=== PATIENT | male | born 1975 | race Caucasian/White ===

== ENCOUNTER 2017-05-17 02:31 | Emergency (ER) | payer MEDICAID ==
[2017-05-17 03:25] VITALS: BP 116/74
== END 2017-05-17 03:25 | disposition home or self-care (01) ==
LOC: ED 02:31
DX: H57.12 Ocular pain, left eye (principal); I10 Essential (primary) hypertension; E11.9 Type 2 diabetes mellitus without complications; E78.00 Pure hypercholesterolemia, unspecified

== ENCOUNTER 2018-04-23 21:15 | Emergency (ER) | payer MEDICAID ==
[~2018-04-23] VITALS: Ht 167.6 cm; Wt 73.7 kg
[2018-04-23 21:33] VITALS: Ht 167.6 cm; Wt 73.7 kg
[2018-04-24 00:45] VITALS: BP 134/85
== END 2018-04-24 00:45 | disposition home or self-care (01) ==
LOC: ED 21:15
DX: S63.610A Unspecified sprain of right index finger, initial encounter (principal); S39.012A Strain of muscle, fascia and tendon of lower back, initial encounter; I10 Essential (primary) hypertension; E11.9 Type 2 diabetes mellitus without complications; E78.00 Pure hypercholesterolemia, unspecified; V89.2XXA Person injured in unspecified motor-vehicle accident, traffic, initial encounter; Y93.73 Activity, racquet and hand sports; Y92.488 Other paved roadways as the place of occurrence of the external cause; Y99.8 Other external cause status
CPT/HCPCS: A4570; J1885

== ENCOUNTER 2020-10-29 20:28 | Emergency (ER) | payer OTHER, MEDICAID ==
[~2020-10-29] VITALS: Ht 170.2 cm; Wt 73.0 kg
[2020-10-29 20:43] VITALS: BP 139/79; Ht 170.2 cm; Wt 73.0 kg
[2020-10-29] MEDS ORDERED: ULTRAM50 MG PO (21:02)
[2020-10-29] MEDS ORDERED: NAPROXEN375 MG PO (21:02)
== END 2020-10-29 21:37 | disposition home or self-care (01) ==
LOC: ED 20:28
DX: S39.81XA Other specified injuries of abdomen, initial encounter (principal); I10 Essential (primary) hypertension; E11.9 Type 2 diabetes mellitus without complications; E78.00 Pure hypercholesterolemia, unspecified; V89.2XXA Person injured in unspecified motor-vehicle accident, traffic, initial encounter; Y93.I9 Activity, other involving external motion; Y92.413 State road as the place of occurrence of the external cause; Y99.8 Other external cause status